=== PATIENT | female | born 1955 | race Caucasian/White ===

== ENCOUNTER 2018-07-04 15:27 | Emergency (ER) | payer MEDICAID, OTHER ==
[2018-07-04 16:34] VITALS: BP 120/78; PULSE 74; RESP 20; TEMP 98.4; O2SAT 98
--- NOTE | 2018-07-04 17:13 | ED PDOC ---
HPI: Abdomen Time Seen by Provider: 07/04/18 15:52 Chief Complaint (Nursing): Abdominal Pain Chief Complaint (Provider): abdominal pain History Per: Patient History/Exam Limitations: no limitations Current Symptoms Are (Timing): Still Present Location Of Pain/Discomfort: Diffuse Quality Of Discomfort: "Pain" Associated Symptoms: Diarrhea, Loss Of Appetite. denies: Fever, Chills, Nausea, Vomiting, Back Pain, Chest Pain, Urinary Symptoms Exacerbating Factors: None Alleviating Factors: None Additional History Per: Patient Additional Complaint(s): 63 year old female with history of hypertension, depression and anxiety presents to the ED with c/o abdominal pain, rectal pain and bleeding for over one month. patient states she has been experiencing abdominal pain intermittently for one year worse in the last month with associated rectal bleeding with bowel movements. She states she has not been seen by doctor because she is afraid if doctors and is afraid of getting testing done. She reports she was seen by psychiatrist today who prompted her to come to the ED. Patient is requesting medication for abdominal pain and states she does not want to have work-up done. She denies chest pain, shortness of breath dizziness. Past Medical History Reviewed: Historical Data, Nursing Documentation, Vital Signs Vital Signs: Last Vital Signs Temp 98.4 F 07/04/18 16:33 Pulse 74 07/04/18 16:33 Resp 20 07/04/18 16:33 BP 120/78 07/04/18 16:33 Pulse Ox 98 07/04/18 16:33 Primary Care Provider: Tommy Bustillo F - Medical History PMH: Anxiety, HTN - Surgical History Surgical History: No Surg Hx - Family History Family History: States: Unknown Family Hx - Living Arrangements Living Arrangements: Alone - Social History Alcohol: None Drugs: Denies - Immunization History Hx Tetanus Toxoid Vaccination: No Hx Influenza Vaccination: No Hx Pneumococcal Vaccination: No - Allergies Allergies/Adverse Reactions: Allergies Allergy/AdvReac Type Severity Reaction Status Date / Time No Known Allergies Allergy Verified 07/04/18 15:46 Review of Systems ROS Statement: Except As Marked, All Systems Reviewed And Found Negative Gastrointestinal: Positive for: Abdominal Pain, Diarrhea, Hematochezia. Negative for: Nausea, Vomiting Physical Exam - Reviewed Nursing Documentation Reviewed: Yes Vital Signs Reviewed: Yes - Physical Exam Appears: Positive for: Well, Non-toxic, No Acute Distress Head Exam: Positive for: ATRAUMATIC, NORMAL INSPECTION, NORMOCEPHALIC Skin: Positive for: Normal Color, Warm, DRY Eye Exam: Positive for: EOMI, Normal appearance, PERRL ENT: Positive for: Normal ENT Inspection Neck: Positive for: Normal, Painless ROM, Supple Cardiovascular/Chest: Positive for: Regular Rate, Rhythm Respiratory: Positive for: CNT, Normal Breath Sounds Gastrointestinal/Abdominal: Positive for: Normal Exam, Bowel Sounds (normactive), Soft, Tenderness (diffuse), Distended Back: Positive for: Normal Inspection Rectal: Positive for: Other (patient refused exam) Extremity: Positive for: Normal ROM Neurological/Psych: Positive for: Awake, Alert, Normal Tone, Oriented (aox3) - ECG O2 Sat by Pulse Oximetry: 98 Medical Decision Making Medical Decision Makin:25 Patient requesting pain medication for home without work-up. Patient advised medications can not be given without proper work. Symptoms presented are concerning and work-up must be completed. patient explained blood-work as well as imaging will be necessary. patient is refusing, he states she gets anxiety when getting blood work and when having to have imaging done. She reports she has not taken anti-anxiety medications and does not have them with her. Patient offered to be given a dose in ED if she agrees to have work-up but she continues to refuse. Dr. last aware. patient to be signed out [facility] medical advice. she states she will return when she feels mentally stable to get wor-up done. Discussed benefits and risks of levaing without proper work-up including . patient states she understands. Explanation given in [place]ian by provider. Disposition - Clinical Impression Clinical Impression: Abdominal pain - Patient ED Disposition Is Patient to be Admitted: No Counseled Patient/Family Regarding: Diagnosis, Need For Followup - Disposition Disposition: Against Medical Advice Disposition Time: 16:25 Condition: STABLE Instructions: Acute Abdomen (Belly Pain) Forms: [employer] (C[place]odian) Print Language: SOUTH SUDANESE - POA Present On Arrival: None
== END 2018-07-04 16:34 | disposition left against medical advice (07) ==
LOC: H.ER 15:27
DX: F50.89 Other specified eating disorder (principal); R10.9 Unspecified abdominal pain; I10 Essential (primary) hypertension